=== PATIENT | male | born 1970 | race Caucasian/White ===

== ENCOUNTER → 2020-01-21 13:07 | Outpatient (REF) | payer BC, SELFPAY | LOC: ANHLAB 13:07 | PROVIDERS: PCP Nurse Practitioner Family; Visit Provider Nurse Practitioner | DX: M67.462 Ganglion, left knee (principal); M67.422 Ganglion, left elbow | CPT/HCPCS: 88304 ==

== ENCOUNTER 2020-08-01 14:54 | Outpatient (CLI) | payer BC, SELFPAY ==
--- NOTE | 2020-08-06 14:20 | WPDHOLTEREM ---
Holter/Event Monitor Holter/Event Monitor Date of procedure: 08/01/20 Procedure Type: 48 hour holter monitor Indications: Palpitations Conclusion: 1. 48 hour holter monitor on 08/01/20. 2. Underlying rhythm is sinus rhythm. HR range 43-133 bpm; average HR 74 bpm. 3. There are 14 premature supraventricular complexes. No supraventricular tachycardia. 4. There are 58 premature ventricular complexes. No ventricular tachycardia. 5. No sinoatrial or atrioventricular blocks. No significant pauses greater than 2 seconds. 6. No symptoms available for correlation.
== END 2020-08-01 14:55 | disposition home or self-care (01) ==
PROVIDERS: PCP Nurse Practitioner Adult Health; Visit Provider Nurse Practitioner Adult Health
DX: R00.2 Palpitations (principal)
CPT/HCPCS: 93225; 93226

== ENCOUNTER 2023-03-02 09:48 | Emergency (ER) | payer BC, SELFPAY ==
--- NOTE | ~2023-03-02 | CT_ITS ---
EXAMINATION: CT abdomen pelvis wo con DATE: 03/02/2023 11:02 INDICATION: Left flank pain TECHNIQUE: Computed tomography (CT) of the abdomen and pelvis was performed without intravenous contr ast. Automated exposure control and iterative reconstruction technique were employed. The dose-length product was 420.38 mGy-cm. COMPARISON: None FINDINGS: Mild dependent atelectasis in the right lower lobe. Heart size is normal. No pericardial or pleural e ffusion. Large calcified gallstones in the incompletely distended gallbladder. No pericholecystic inf lammatory change to suggest acute cholecystitis. The common bile duct is dilated to 11 mm with a few gallstones within the mid to distal duct. Mild central intrahepatic biliary ductal dilation. There ar e few small splenic calcific location consistent with old granulomatous disease. 8 mm cyst at the per ipheral upper pole of the left kidney. There are 3 stones in the lower pole of the left kidney the la rgest measuring 4 mm. Pancreas and bilateral adrenal glands are normal. 3 mm stone at the left ureter ovesicular junction with mild left hydroureteronephrosis. No right-sided urolithiasis or hydronephros is. No bowel obstruction. Normal retrocecal appendix. Penile prosthesis with reservoir in the anteroi nferior left hemipelvis. No free intraperitoneal gas or fluid. No pathologically enlarged abdominal o r pelvic lymphadenopathy. 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 The second this includes an old healed fracture milly ne extending into the left iliac wing. There is some heterotopic ossification the soft tissues bark scaler ior to the pubic bodies. L5 is sacralized on the left. IMPRESSION: 1. Left nephrolithiasis with obstructing 3 mm stone at the left ureterovesicular junction resulting i n mild left hydroureteronephrosis. 2. Cholelithiasis and choledocholithiasis with dilation the common bile duct to 11 mm and mild centra l intrahepatic biliary ductal dilation. Correlate with liver function tests. Reviewed, dictated and finalized at location A. FARM WORKER IMPRESSION: 1. Left nephrolithiasis with obstructing 3 mm stone at the left ureterovesicula r junction resulting in mild left hydroureteronephrosis. 2. Cholelithiasis and choledocholithiasis with dilation the common bile duct to 11 mm and mild central intrahepatic biliary ductal dilation. Correlate with li theodore function tests.
[2023-03-02 09:48] VITALS: RESP 14
[2023-03-02 09:51] VITALS: BP 135/80; PULSE 80; RESP 20; TEMP 36.4; O2SAT 100
[2023-03-02 10:20] LABS: Appearance Urine Cloudy (Clear); Bacteria Urine None Seen /hpf; Bilirubin Urine Negative (Negative); Blood Urine Negative (Negative); Color Urine Yellow (Yellow); Glucose Urine UA Negative (Negative); Ketones Urine Negative (Negative); Leukocyte Esterase Ur Trace LEU/UL (Negative); Nitrate Urine Negative (Negative); Non Pathogenic Casts 0-2; Protein Urine Negative (Negative); RBC Urine 0-2 /hpf (0-2); Specific Grav Ur 1.019 (1.001-1.035); Squamous Epithelial Cell Urine None seen /hpf (Few); Urobilinogen Urine 0.2 mg/dL (<2.0); WBC Urine 0-5 /hpf
[2023-03-02 10:25] LABS: Basophils Absolute Auto 0.1 K/mm3 (0.0-0.1); Basophils Percent Auto 0.7 % (0.2-1.2); Eosinophils Percent Auto 0.2 % (0-4.4); Hemoglobin 15.1 g/dL (14.0-18.0); Immature Granulocyte Absolute 0.06 K/mm3 (0.00-0.031); Immature Granulocyte Percent A 0.5 % (0-0.5); Lymphocytes Absolute Auto 0.93 K/mm3 (0.9-3.2); Lymphocytes Percent Auto 8.5 % (18.3-44.2); Mean Corpuscular HGB Conc 33.6 g/dl (32-36); Mean Corpuscular Hemoglobin 30.3 pg (26-34); Mean Corpuscular Volume 90.2 fl (80-100); Mean Platelet Volume 10.1 fl (7.4-10.4); Monocytes Absolute Auto 0.7 K/mm3 (0.1-0.6); Neutrophils Absolute Auto 9.2 K/mm3 (1.3-6.7); Neutrophils Percent Auto 84.1 % (45.5-73.1); Platelet Count Result 327 k/mm3 (150-375); Red Blood Count 4.99 M/mm3 (4.6-6.20); Red Cell Distribution Width 13.2 % (11.5-14.5)
[2023-03-02 10:33] LABS: Add Urine Microscopic? YES
--- NOTE | 2023-03-02 10:36 | PC.NURSE ---
Medic student attempted to start an IV on the pt when the pt states, I went to the bathroom and I feel better now, so the IV is useless.
[2023-03-02 10:37] LABS: Alanine Aminotransferase 22 U/L (6-50); Albumin Level 4.6 g/dL (3.5-5.1); Alkaline Phosphatase 48 U/L (38-126); Anion Gap 14 mmol/L (8-16); Aspartate Amino Transferase 24 U/L (17-59); Blood Urea Nitrogen 15 mg/dL (9-20); Calcium 9.5 mg/dL (8.4-10.2); Carbon Dioxide 22 mmol/L (22-30); Chloride 101 mmol/L (98-107); Estimated CRCL calculation 96 ml/min; Estimated Glomerular Filt Rate > 60; Glucose 160 mg/dL (65-110); Lipase 409 U/L (23-300); Potassium 3.6 mmol/L (3.4-5.0); Sodium 137 mmol/L (137-145)
--- NOTE | 2023-03-02 10:43 | ED.ABDPAIN ---
HPI - Abdominal Pain General Chief Complaint: Abdominal Pain Stated Complaint: abd pain Time Seen by Provider: 03/02/23 10:12 History of Present Illness HPI narrative: Patient is a 52-year-old male who presents the ER with left-sided abdominal pain and flank pain. Ongoing over last few days. Intermittent in nature. No aggravating or alleviating factors. Had severe pressure in his lower abdomen and felt like he needed to have a bowel movement but was unable to so he came in. Patient has history of urethral stricture due to a trauma years ago. He says he has been having some tingling around his penis is concerned he could have an infection. He has taken some oral ciprofloxacin provided to him by his significant other. Related Data Home Medications Medication Instructions Recorded Confirmed simvastatin 10 mg tablet 10 mg PO DAILY 12/03/19 Allergies Allergy/AdvReac Type Severity Reaction Status Date / Time No Known Allergies Allergy Verified 03/02/23 09:53 Review of Systems Review of Systems: All systems reviewed & are unremarkable except as noted in HPI and below Constitutional: Constitutional: Denies chills, Denies fatigue and Denies fever(s) Cardiovascular: Cardiovascular: Reports no additional cardiovascular complaints Respiratory: Respiratory: Reports no additional respiratory complaints Gastrointestinal: Gastrointestinal: Reports no additional gastrointestinal complaints Genitourinary: Genitourinary: Denies hematuria, Denies oliguria, Denies dysuria, Denies testicular pain and Reports urinary frequency PMFSH Surgical History Surgical History History of repair of ACL 2018 History of surgery uretha surgery Social History Social History (System 05/04/22 @ 15:20 by Saad Min) Smoking status: Never smoker Alcohol intake: current Alcohol use details: 2/week Substance use: never Substance use type: does not use Exam Narrative: GENERAL: Well-appearing, well-nourished, and in no acute distress. HEAD: Normocephalic, atraumatic. ENT: Mucous membranes moist. NECK: Supple. CHEST: Clear to auscultation. No respiratory distress. HEART: Regular rate and rhythm. Normal peripheral pulses. ABDOMEN: Soft, nontender, nondistended, No CVA tenderness. EXTREMITIES: Normal range of motion. No edema. SKIN: Warm, dry, no rash. NEURO: Alert and oriented x3. PSYCH: Normal mood and affect. Course Course Emergency Course: Patient with a kidney stone CT. Discussed case with Dr. Whatley at [facility] who is on-call for patient's typical urologist. She feels patient is going to be able passed 3 mm stone as he has had a procedure to help with his urethral stricture. She would like him to be given a copy of the images so that he can follow-up in their clinic. Patient will be discharged with pain control as well as Flomax as well as a copy of the images. Vital Signs Vital signs: Vital Signs Respiratory Rate 14 03/02/23 09:48 Temperature 97.5 F L 03/02/23 09:51 Pulse Rate 80 03/02/23 09:51 Respiratory Rate 20 03/02/23 09:51 Blood Pressure 135/80 03/02/23 09:51 Pulse Oximetry 100 03/02/23 09:51 MDM - Abdominal Pain Lab Data 03/02/23 10:02 03/02/23 10:02 Labs: Lab Results 03/02/23 Range/Units 10:02 WBC 11.0 H (4.5-10.0) K/mm3 RBC 4.99 (4.6-6.20) M/mm3 Hgb 15.1 (14.0-18.0) g/dL Hct 45.0 (42.0-52.0) % MCV 90.2 (80-100) fl MCH 30.3 (26-34) pg MCHC 33.6 (32-36) g/dl RDW 13.2 (11.5-14.5) % Plt Count 327 (150-375) k/mm3 MPV 10.1 (7.4-10.4) fl Immature Gran % (Auto) 0.5 (0-0.5) % Neut % (Auto) 84.1 H (45.5-73.1) % Lymph % (Auto) 8.5 L (18.3-44.2) % [place] % (Auto) 6.0 (2.6-8.5) % Eos % (Auto) 0.2 (0-4.4) % Baso % (Auto) 0.7 (0.2-1.2) % Lymph # (Auto) 0.93 (0.9-3.2) K/mm3 [place] # (Auto) 0.7 H (0.1-0
== END 2023-03-02 13:29 | disposition home or self-care (01) ==
PROVIDERS: Emergency Provider Emergency Medicine
DX: N13.2 Hydronephrosis with renal and ureteral calculous obstruction (principal); K80.20 Calculus of gallbladder without cholecystitis without obstruction
CPT/HCPCS: 36415; 74176; 80053; 81001; 83690; 85025; 99284

== ENCOUNTER → 2023-03-21 08:27 | Outpatient (CLI) | payer BC, SELFPAY ==
--- NOTE | ~2023-03-21 | MR_ITS ---
EXAMINATION: MR MRCP wo/w con/w 3D wo ind DATE: 03/21/2023 10:00 INDICATION: Cholelithiasis and choledocholithiasis. TECHNIQUE: Magnetic resonance imaging (MRI) of the abdomen was performed without and with 20 mL Multi paul intravenous contrast. Sequences included coronal T2-weighted SS-FSE, coronal T2-weighted FS SS- FSE, coronal T2-weighted FS FIESTA, axial T2-weighted FS FIESTA, axial T2-weighted FIESTA, sagittal T 2-weighted SS-FSE, axial T1-weighted dual-echo FSPGR, axial T2-weighted SS-FSE, axial T1-weighted LAV A, axial T2-weighted STIR FSE. Thick-slab T2-weighted FRFSE-XL images were obtained for magnetic reso nance cholangiopancreatography (MRCP). Rotating maximum intensity projection 3-D reconstructions of t he volumetric data were created by the technologist. Postcontrast sequences included a time course of axial T1-weighted LAVA. COMPARISON: None. FINDINGS: ABDOMEN MRI: Heart size is normal. No pericardial or pleural effusion. There are couple large gallstones in the no ndilated gallbladder with no wall thickening or pericholecystic inflammatory stranding to suggest acu te cholecystitis. Liver, spleen, pancreas, bilateral adrenal glands and right kidney are normal. A fe w T2 hyperintense nonenhancing left renal cysts the largest measuring 1.1 cm. The prior mild left hyd roureteronephrosis has resolved. Visualized portions of bowels are unremarkable with no obstruction. Mild lumbar levocurvature with mild spondylosis. Small T1 hyperintense and fat saturating L2 hemangio ma. ABDOMEN MRCP: The common bile duct is dilated to 10 mm in maximal diameter with multiple low signal intensity galls tones within the mid to distal common bile duct. The largest stone measures up to 11 x 7 mm . There i s mild central intrahepatic biliary ductal dilation. Main pancreatic duct is normal. IMPRESSION: 1. Cholelithiasis and choledocholithiasis with no significant change in mild intra and extrahepatic b iliary ductal dilation. Reviewed, dictated and finalized at location A. ICULUM DEVELOPER IMPRESSION: 1. Cholelithiasis and choledocholithiasis with no significant change in mild in tra and extrahepatic biliary ductal dilation.
== END ==
PROVIDERS: PCP Surgery; Visit Provider Surgery
DX: K80.70 Calculus of gallbladder and bile duct without cholecystitis without obstruction (principal)
CPT/HCPCS: 74183; 76376; A9577

== ENCOUNTER 2023-04-07 09:07 | Outpatient (CLI) | payer BC, SELFPAY ==
[2023-04-07 09:32] LABS: Mean Corpuscular HGB Conc 34.1 g/dl (32-36); Mean Corpuscular Hemoglobin 30.8 pg (26-34); Mean Corpuscular Volume 90.3 fl (80-100); Mean Platelet Volume 10.4 fl (7.4-10.4); Platelet Count Result 239 k/mm3 (150-375); Red Blood Count 4.87 M/mm3 (4.6-6.20); Red Cell Distribution Width 13.1 % (11.5-14.5); White Blood Count 3.2 K/mm3 (4.5-10.0)
[2023-04-07 09:41] LABS: Alanine Aminotransferase 23 U/L (6-50); Albumin Level 4.3 g/dL (3.5-5.1); Alkaline Phosphatase 34 U/L (38-126); Amylase 141 U/L (30-110); Anion Gap 6 mmol/L (8-16); Aspartate Amino Transferase 22 U/L (17-59); Bilirubin,Total 1.5 mg/dL (0.2-1.3); Blood Urea Nitrogen 19 mg/dL (9-20); Calcium 9.4 mg/dL (8.4-10.2); Carbon Dioxide 28 mmol/L (22-30); Chloride 105 mmol/L (98-107); Estimated Glomerular Filt Rate > 60; Glucose 99 mg/dL (65-110); Lipase 383 U/L (23-300); Potassium 5.1 mmol/L (3.4-5.0); Sodium 139 mmol/L (137-145)
== END 2023-04-07 09:08 | disposition home or self-care (01) ==
LOC: ANHLAB 09:09
PROVIDERS: PCP Nurse Practitioner; Visit Provider Nurse Practitioner Family
DX: K80.70 Calculus of gallbladder and bile duct without cholecystitis without obstruction (principal)
CPT/HCPCS: 36415; 80053; 82150; 83690; 85027

== ENCOUNTER 2023-05-09 02:07 | Day surgery (SDC) | payer BC, SELFPAY ==
[2023-04-26 12:28] VITALS: BMI 25.1
--- NOTE | 2023-05-03 10:14 | PC.NURSE ---
Chart reviewed by Dr. Pratt and no further testing or clearance needed to proceed with procedure.
--- NOTE | 2023-05-06 09:56 | SUR.PREOP ---
Patient called regarding upcoming procedure. Reviewed preop instructions, appointment times, and procedure prep.
[2023-05-09] VITALS (8 sets, daily range): BP systolic 128–150; BP diastolic 81–92; PULSE 52–90; RESP 15–21; TEMP 36.3–36.5; O2SAT 100
--- NOTE | ~2023-05-09 | XR_ITS ---
EXAMINATION: XR ERCP DATE: 05/09/2023 12:50 INDICATION: Choledocholithiasis. TECHNIQUE: 3 spot fluoroscopic images of the right upper quadrant were obtained during endoscopic ret rograde cholangiopancreatography (ERCP). Fluoroscopy exposure time was 125 seconds. COMPARISON: CT abdomen and pelvis 03/02/2023, MRCP 03/21/23 FINDINGS: The endoscope is in the second portion the duodenum. The common duct is dilated. There are gallstones in the common duct. Images demonstrate balloon sweeping of the common duct. There are gall stones in the gallbladder. IMPRESSION: 1. Choledocholithiasis and dilated common duct status post balloon sweeping of the common duct. 2. Cholelithiasis. Please refer to the ERCP procedure note for additional details. Reviewed, dictated and finalized at location A. IMPRESSION: 1. Choledocholithiasis and dilated common duct status post balloon sweeping of the common duct. 2. Cholelithiasis. Please refer to the ERCP procedure note for additional detai ls.
[2023-05-09] MEDS: LACTATED RINGERS 1,000 ML 150 ML IV CONT (11:46)
--- NOTE | 2023-05-09 11:56 | WPDANESEPPF ---
Anes - Initial Pre Proc Eval Procedure: Operation Date: 05/09/23 13:30 Proposed Procedures p Endoscopic Retro Cholangiopancreatogram - Davey Pascal MD Date/Time: 05/09/23 11:56 Surgeon: Davey Pascal MD Pre Op Diagnosis: Calculus of gallbladder and bile duct Patient Data Age: 52 Gender: M Height: 1.78 m Weight: 84.1 kg Last Vital Signs Temp 97.7 F 05/09/23 11:41 Pulse 64 05/09/23 11:41 Resp 16 05/09/23 11:41 BP 141/81 H 05/09/23 11:41 Pulse Ox 100 05/09/23 11:41 O2 Del Method Room Air 05/09/23 11:41 Allergies Allergy/AdvReac Type Severity Reaction Status Date / Time No Known Allergies Allergy Verified 05/09/23 11:39 Home Medications Medication Instructions Recorded Confirmed Type simvastatin 10 mg tablet 10 mg PO DAILY 12/03/19 04/26/23 History hydrochlorothiazide 12.5 mg capsule 12.5 mg PO DAILY 03/04/23 04/26/23 History losartan 25 mg tablet 25 mg PO DAILY 03/04/23 04/26/23 History Patient hx anesthesia problems: none Family hx anesthesia problems: none Results Review: All pre-operative results and documents have been reviewed as part of the pre-operative evaluation. [facility] Past Medical History Medical History (Updated 04/07/23 @ 09:02 by RAMON Cortes) High cholesterol History of blood transfusion Hypertension Kidney stones Surgical History Surgical History History of repair of ACL 2018 History of surgery uretha surgery Family History Family History Other Heart disease Hypertension Social History Social History Smoking status: Never smoker Alcohol intake: current Alcohol use details: rarely Substance use: never Substance use type: does not use Living arrangements: with family Occupation/Education: occupation Additional occupation/education comments: [employer] Spiritual care concerns: No Anes - Eval Final PreProcedure Day of Procedure 05/09/23 11:56 Patient weight: normal Heart: regular rate and rhythm Lungs: clear to auscultation Airway: Mallampati scale class II Neurological: alert and oriented Last oral intake: >/= 8 hours ASA classification: III Emergent: no Anesthetic plan: proceed Anesthesia type and monitoring: general ETT and standard monitoring Results Review: All pre-operative results and documents have been reviewed as part of the pre-operative evaluation. Informed Consent: The patient's anesthetic plan and its attendant risks and benefits were discussed with the patient/family/POA. Questions were solicited and answers provided to the satisfaction of the patient/family/POA.
--- NOTE | 2023-05-09 11:59 | PM.HPGS ---
History of Present Illness History of Present Illness Consent: Risks, benefits, and alternatives have been discussed and questions answered. Patient agrees to proceed with procedure. Chief complaint: Calculus of gallbladder and bile duct Narrative: Evens Angeles is a 52 year old male here for ercp, he presented to [place] ER on 03/02/23 for kidney stones and gallstones was an incidental finding. He had a CT abdomen/pelvis that showed?1. Left nephrolithiasis with obstructing 3 mm stone at the left ureterovesicular junction resulting in mild left hydroureteronephrosis and 2. Cholelithiasis and choledocholithiasis with dilation the common bile duct to 11 mm and mild central intrahepatic biliary ductal dilation. lipase was mildly elevated at? 409 and LFTs WNLs.?This was confirmed by MRCP. Denies abdominal pain or nausea, he does have reflux symptoms. Review of Systems Review of Systems: All systems reviewed & are unremarkable except as noted in HPI and below PMFSH Past Medical History Medical History (Updated 04/07/23 @ 09:02 by RAMON Cortes) High cholesterol History of blood transfusion Hypertension Kidney stones Surgical History Surgical History History of repair of ACL 2018 History of surgery uretha surgery Family History Family History Other Heart disease Hypertension Social History Social History Smoking status: Never smoker Alcohol intake: current Alcohol use details: rarely Substance use: never Substance use type: does not use Living arrangements: with family Occupation/Education: occupation Additional occupation/education comments: [employer] Spiritual care concerns: No Meds Home Medications and Allergies Home Medications Medication Instructions Recorded Confirmed Type simvastatin 10 mg tablet 10 mg PO DAILY 12/03/19 04/26/23 History hydrochlorothiazide 12.5 mg capsule 12.5 mg PO DAILY 03/04/23 04/26/23 History losartan 25 mg tablet 25 mg PO DAILY 03/04/23 04/26/23 History Allergies Allergy/AdvReac Type Severity Reaction Status Date / Time No Known Allergies Allergy Verified 05/09/23 11:39 Vital Signs Vital Signs - 24 hr 05/09/23 11:41 Temperature 97.7 F Pulse Rate 64 Respiratory Rate 16 Blood Pressure 141/81 H Pulse Oximetry 100 Oxygen Delivery Room Air Exam Const: General: comfortable and no acute distress HENMT: Face/Nose/Sinus: Normal nares present Eyes: General: appearance normal, both eyes and all related structures Neck: Neck: no JVD Resp: Auscultation: clear to auscultation bilaterally Cardio: Rate: regular rate Rhythm: regular rhythm GI: Inspection: non-distended GI Palp: Yes Soft to palpation Skin: General skin exam: normal color Neuro: General: gait normal Speech: normal speech Extrem: General: normal to inspection Psych: Mental Status: mental status grossly normal Assessment and Plan Assessment and plan (1) Cholelithiasis with choledocholithiasis: Code(s): K80.70 - Calculus of gallbladder and bile duct without cholecystitis without obstruction Status: Acute Assessment and Plan: ercp to remove bile duct stone, he is mostly asymptomatic but in the past had mild elevated lipase then will follow-up again with Dr Sherman
[2023-05-09] MEDS: INDOMETHACIN 50 MG SUPP.RECT RECTAL (12:22)
--- NOTE | 2023-05-09 14:02 | SUR.PHASEII ---
As I was taking pt out by wheelchair he complained of soreness in his Lt calf , I assessed his calf no warmth or redness, I informed him to see his if any of those symptoms arise.
== END 2023-05-09 13:56 | disposition home or self-care (01) ==
PROVIDERS: PCP Nurse Practitioner; Visit Provider Internal Medicine Gastroenterology
PROC: (CPT 43260; principal; 2023-05-09 13:30)
DX: K80.70 Calculus of gallbladder and bile duct without cholecystitis without obstruction (principal); I10 Essential (primary) hypertension; K83.8 Other specified diseases of biliary tract; E78.00 Pure hypercholesterolemia, unspecified; Z98.890 Other specified postprocedural states; Z82.49 Family history of ischemic heart disease and other diseases of the circulatory system
CPT/HCPCS: 43262; 43264; 74329; A9270; J0330; J2704; J7120; Q9966

== ENCOUNTER 2023-06-28 09:31 | Outpatient (CLI) | payer BC, SELFPAY ==
[2023-06-28 10:11] LABS: Alanine Aminotransferase 17 U/L (6-50); Albumin Level 4.4 g/dL (3.5-5.1); Alkaline Phosphatase 41 U/L (38-126); Amylase 93 U/L (30-110); Aspartate Amino Transferase 19 U/L (17-59); Bilirubin,Total 0.9 mg/dL (0.2-1.3); Lipase 54 U/L (23-300)
[2023-06-28 10:12] LABS: Anion Gap 4 mmol/L (4-12); Blood Urea Nitrogen 15 mg/dL (9-20); Calcium 9.3 mg/dL (8.4-10.2); Carbon Dioxide 28 mmol/L (22-30); Chloride 104 mmol/L (98-107); Estimated Glomerular Filt Rate > 60; Glucose 97 mg/dL (65-110); Potassium 4.2 mmol/L (3.4-5.0); Sodium 136 mmol/L (137-145)
== END 2023-06-28 09:32 | disposition home or self-care (01) ==
LOC: ANHSURGERY 09:33
PROVIDERS: Anesthesiology; PCP Nurse Practitioner; Visit Provider Surgery
DX: K80.70 Calculus of gallbladder and bile duct without cholecystitis without obstruction (principal); Z79.899 Other long term (current) drug therapy; Z01.818 Encounter for other preprocedural examination
CPT/HCPCS: 36415; 80048; 80076; 82150; 83690

== ENCOUNTER 2023-07-01 02:46 | Day surgery (SDC) | payer BC, SELFPAY ==
[2023-06-22 13:53] VITALS: BMI 25.1
--- NOTE | 2023-06-22 14:00 | PC.NURSE ---
Report to the Outpatient Waiting Room, entrance under the green pavilion located off [facility], at time 12:00 on date 07/01/23. Planned Procedure Time: 2:00. Time changes happen often and if your time is changed the preop area will call you the afternoon before. - You and your visitor will be asked to self-screen and do not enter if you have any COVID symptoms. - A mask is optional within the hospital at this time. Patients may have clear liquids (water, carbonated beverages, clear teas, apple juice) until 3 hours prior to surgery with a maximum of 20 ounces. - No food from midnight until time of surgery Take the following medications with a SIP of water the morning of surgery: NONE DO NOT STOP ANY OF YOUR OTHER PRESCRIPTION MEDICATIONS PRIOR TO SURGERY ?EXCEPT THE FOLLOWING Medications to discontinue per physician: N/A Date to take last dose: N/A Please no make-up, nail occitan, hairspray, perfume, deodorant, or body powder the day of surgery. No jewelry (including any body piercings) or valuables the day of surgery, leave them at home. Please take a shower or bath the night before, or the morning of, surgery with an antibacterial soap. Wear comfortable, loose fitting clothing. - Jewelry must be removed prior to entering the operating room. Rings and piercings that are not removed may be cut off. - The hospital will not accept responsibility for valuables. - Please leave all valuables, including medications, at home the day of surgery. If you are going home after surgery, a licensed dumpster driver must drive you home. - NO public transportation without another adult if you receive anesthesia. - We recommend that an adult stay with you for 24 hours following discharge. - We also recommend that you do not drive, make important decision, drink alcoholic beverages, or take any drugs that were not prescribed by your health care provider for at least 24 hours after your discharge time. Follow any additional instructions given to you from your surgeon. If you or anyone in your household have experienced Covid symptoms in the past week, please notify your surgeon or the nurse liaison at the phone number below for possible testing. Telephone instructions given to RHINA WONG and asked if any additional questions and then verbalized understanding. Patient advised to call surgeon office or pre surgery nurse liaison [phone] if any additional questions.
[2023-07-01] VITALS (8 sets, daily range): BP systolic 122–139; BP diastolic 72–87; PULSE 52–89; RESP 12–16; TEMP 36.3–37; O2SAT 99–100; BMI 25.4
--- NOTE | ~2023-07-01 | XR_ITS ---
EXAMINATION: XR cholangiogram surg 1st inj DATE: 07/01/2023 15:12 INDICATION: Cholelithiasis. TECHNIQUE: 76 fluoroscopic images of the right upper quadrant were obtained during intraoperative cho langiography performed by the surgeon. I was not present in the operating room. Fluoroscopy exposure time was 14 seconds. COMPARISON: CT abdomen pelvis 03/02/2023, MRCP 03/21/2023 FINDINGS: There is a catheter in the cystic duct. The common duct is mildly dilated. Contrast passes into the duodenum. IMPRESSION: 1. No choledocholithiasis. Reviewed, dictated and finalized at location E. IMPRESSION: 1. No choledocholithiasis.
--- NOTE | 2023-07-01 13:09 | P.PNAN_ITS ---
Anes - Initial Pre Proc Eval Procedure: Operation Date: 07/01/23 14:00 Proposed Procedures p Laparoscopic Cholecystectomy with Intraoperative Cholangiogram - Jeromy Goncalves DO Date/Time: 07/01/23 13:09 Surgeon: Jeromy Goncalves DO Pre Op Diagnosis: Cholelithiasis Choledocholithisis Patient Data Age: 52 Gender: M Height: 1.78 m Weight: 79.4 kg Allergies Allergy/AdvReac Type Severity Reaction Status Date / Time No Known Allergies Allergy Verified 06/22/23 13:53 Home Medications Medication Instructions Recorded Confirmed Type simvastatin 10 mg tablet 10 mg PO DAILY 12/03/19 06/22/23 History hydrochlorothiazide 12.5 mg capsule 12.5 mg PO DAILY 03/04/23 06/22/23 History losartan 25 mg tablet 25 mg PO DAILY 03/04/23 06/22/23 History Patient hx anesthesia problems: none Family hx anesthesia problems: none Results Review: All pre-operative results and documents have been reviewed as part of the pre- operative evaluation. [facility] Past Medical History Medical History (Updated 07/01/23 @ 13:09 by Cuong Parks MD) High cholesterol History of blood transfusion Hypertension Kidney stones ALIYA (obstructive sleep apnea) Surgical History Surgical History History of ERCP 05/09/23 History of repair of ACL 2018 History of surgery uretha surgery Family History Family History Other Heart disease Hypertension Social History Social History Smoking status: Never smoker Alcohol intake: current Alcohol use details: 2/MONTH Substance use: never Substance use type: does not use Living arrangements: with family Occupation/Education: occupation Additional occupation/education comments: [employer] Spiritual care concerns: No Anes - Eval Final PreProcedure Day of Procedure 07/01/23 13:09 Patient weight: normal Heart: regular rate and rhythm Lungs: clear to auscultation Airway: Mallampati scale class II Neurological: alert and oriented Last oral intake: >/= 8 hours ASA classification: III Emergent: no Anesthetic plan: proceed Anesthesia type and monitoring: general ETT and standard monitoring Results Review: All pre-operative results and documents have been reviewed as part of the pre- operative evaluation. Informed Consent: The patient's anesthetic plan and its attendant risks and benefits were discussed with the patient/family/POA. Questions were solicited and answers provided to the satisfaction of the patient/family/POA.
--- NOTE | 2023-07-01 13:17 | WPDHPUPDATE1 ---
History and Physical Update Update Date/Time: 07/01/23 13:17 History and Physical has been reviewed, including an updated exam of the patient. There are NO changes in the patient's condition. Risks, benefits, and alternatives have been discussed and questions answered. Patient agrees to proceed with procedure.
--- NOTE | 2023-07-01 13:17 | PM.IMHP ---
H&P: HPI History of Present Illness Date/Time: 07/01/23 13:17 Chief Complaint: Choledocholithiasis, cholelithiasis Narrative: Champ presents for laparoscopic cholecystectomy with intraoperative cholangiogram. He denies any medical changes since last seen in the office. Review of Systems Review of Systems: All systems reviewed & are unremarkable except as noted in HPI and below Constitutional: Constitutional: Denies chills, Denies fever(s), Denies headache(s) and Denies weight loss Eyes: Eyes: Denies change in vision ENT: Denies dizziness, Denies headache(s), Denies neck mass and Denies throat swelling Cardiovascular: Cardiovascular: Denies chest pain, Denies lightheadedness and Denies dyspnea Respiratory: Respiratory: Denies cough, Denies dyspnea and Denies wheezing Gastrointestinal: Gastrointestinal: Denies abdominal pain, Denies change in bowel habits, Denies nausea and Denies vomiting Genitourinary: Genitourinary: Denies hematuria and Denies dysuria Musculoskeletal: Musculoskeletal: Reports as per HPI Integumentary/Breasts: Skin/Breast: Reports as per HPI Neurologic: Denies dizziness and Denies headache(s) Allergic/Immunologic: Allergic/Immunologic: Denies throat swelling and Denies wheezing [facility] Past Medical History Medical History (Updated 07/01/23 @ 13:09 by Cuong Parks MD) High cholesterol History of blood transfusion Hypertension Kidney stones ALIYA (obstructive sleep apnea) Surgical History Surgical History History of ERCP 05/09/23 History of repair of ACL 2018 History of surgery uretha surgery Family History Family History Other Heart disease Hypertension Social History Social History Smoking status: Never smoker Alcohol intake: current Alcohol use details: 2/MONTH Substance use: never Substance use type: does not use Living arrangements: with family Occupation/Education: occupation Additional occupation/education comments: [employer] Spiritual care concerns: No Meds Home Medications and Allergies Home Medications Medication Instructions Recorded Confirmed Type simvastatin 10 mg tablet 10 mg PO DAILY 12/03/19 06/22/23 History hydrochlorothiazide 12.5 mg capsule 12.5 mg PO DAILY 03/04/23 06/22/23 History losartan 25 mg tablet 25 mg PO DAILY 03/04/23 06/22/23 History Allergies Allergy/AdvReac Type Severity Reaction Status Date / Time No Known Allergies Allergy Verified 06/22/23 13:53 Exam Const: General: no acute distress and alert Orientation/consciousness: patient oriented x3 HENMT: Head: normocephalic and atraumatic Ears: hearing grossly normal bilaterally Face/Nose/Sinus: Normal nares present Mouth: Yes Normal oral and palatal mucosa present Eyes: Periorbital: periorbital findings normal Sclera: sclerae normal EOM: EOMs intact bilaterally Neck: Neck: normal visual inspection, no lymphadenopathy and trachea midline Chest: Chest palpation & inspection: normal inspection of the chest Resp: Effort & Inspection: normal respiratory effort Auscultation: clear to auscultation bilaterally Cardio: Jugular venous distension: no JVD Rate: regular rate Rhythm: regular rhythm Heart sounds: S1 normal heart sound present and S2 normal heart sound present Peripheral pulses: Peripheral pulses 2+ throughout GI: Inspection: normal to inspection GI Palp: Yes Soft to palpation, No Tenderness to palpation present (GI), No Guarding due to palpation present (GI) and No Rebound tenderness present Percussion: Yes normal to percussion Auscultation: normal bowel sounds : General: Yes no CVA tenderness Back/Spine/Pelvis: Back: no CVA tenderness Neuro: General: patient oriented x3, no focal motor deficits and CN's II-XI intact bilaterally Cognition (Neuro): normal cognition
[2023-07-01] MEDS: LACTATED RINGERS 1,000 ML 30 ML IV CONT ×2 (13:35→15:52)
[2023-07-01] MEDS: KETOROLAC 15 MG/ML VIAL (*BKC) IV PUSH (13:37)
[2023-07-01] MEDS: ACETAMINOPHEN 500 MG TABLET 1000 MG PO (13:37)
[2023-07-01] MEDS: ceFAZolin 2 GM/D5W 50 ML 2 GM/50 ML BAG IVPB (14:12)
[2023-07-01] MEDS: BUPIVACAINE/EPINEPHRINE 0.5% 50 ML VIAL 30 ML INFILTRATE (14:13)
--- NOTE | 2023-07-01 15:59 | W.PM.PROC2 ---
Procedure Note - Detailed Date of Procedure 07/01/23 Pre-op Diagnosis Cholelithiasis, Choledocholithiasis Post-op Diagnosis Same Procedure Performed 1. Laparoscopic cholecystectomy with intraoperative cholangiogram 2. Massive adhesiolysis Surgeon Jeromy Goncalves, Anesthesia General and Local (0.5% bupivacaine with epinephrine) Indications This is a 52-year-old man who presented with a recent finding of choledocholithiasis and cholelithiasis. He was not having many symptoms of this, but he did have elevated bilirubin levels. He underwent ERCP with stone extraction. He followed up with GI laparoscopic cholecystectomy was recommended. He then followed up with me and he continues to not have any abdominal symptoms suggestive of symptomatic cholelithiasis or cholecystitis. We discussed the risks of recurrent choledocholithiasis which could lead to future problems. Decision was made to proceed with laparoscopic cholecystectomy with intraoperative cholangiogram, possible open. Findings Laparoscopic cholecystectomy with cholangiogram was performed. The patient had extensive adhesions from his prior exploratory laparotomy procedure. I entered the abdomen in the right upper quadrant but still encountered significant adhesions. I was able to find a small window where I could place a 2nd port free from adhesions. I then proceeded with adhesiolysis carefully with curved laparoscopic scissors. About 1 hour was spent performing adhesiolysis which is greater than 50% of the total operating time. There were several loops of small bowel omentum, transverse colon, and liver adherent to the abdominal wall. After taking down all of the adhesions in the periumbilical, epigastric, and right upper quadrant region I was then able to place my remaining ports performed the remainder of the procedure. The cystic duct appeared normal in size. Intraoperative cholangiogram was obtained and there did not appear to be any filling defects or obstruction within the common bile duct. There were several gallstones within the gallbladder and some chronic gallbladder wall thickening. The gallbladder was removed and sent to the lab for pathology. I did notice some bleeding along the omentum where the adhesiolysis had been performed. I sprayed Surgiflo along this area to help desk manager with hemostasis. Description of Procedure Procedure as well as risks, benefits, and alternatives were discussed with the patient. Written consent was obtained and placed in chart prior to procedure. Patient was brought back to surgical suite. He was placed supine operating table. Time-out was done to confirm patient and procedure. He was then intubated by the anesthesia department. His abdomen was prepped and aped in sterile fashion using chlorhexidine prep. 0.5% bupivacaine with epinephrine was infiltrated locally at each of the locations for port placement. A 5 mm incision was made in the right upper quadrant and a 5 mm Optiview trocar was advanced through the abdominal layers under direct visualization. Once inside the abdominal cavity, carbon dioxide insufflation was used to create a pneumoperitoneum. The camera was inserted in the abdomen was inspected. There appeared to be many adhesions all around where the port was placed. Was able to identify another area in the right lateral abdomen that appeared free of adhesions. A 5 mm incision was made in this location and a 5 mm trocar was inserted under direct visualization. I then began carefully taking down adhesions using laparoscopic curved scissors. I carefully took down all of the adhesions to about the midline periumbilical region. Some of these adhesions included loops of small bowel and care was taken to avoid injuring the small bowel while performing the adhesiolysis. I then was able to identify the abdominal wall in the left periumbilical region. A 5 mm incision was made at this location and a 5 mm trocar was inserted under direct visual
== END 2023-07-01 17:56 | disposition home or self-care (01) ==
PROVIDERS: PCP Nurse Practitioner; Visit Provider Surgery
PROC: 0FT44ZZ Resection of Gallbladder, Percutaneous Endoscopic Approach (ICD-10-PCS; CPT 47562; principal; 2023-07-01 14:00)
DX: K80.10 Calculus of gallbladder with chronic cholecystitis without obstruction (principal); K66.0 Peritoneal adhesions (postprocedural) (postinfection); E78.00 Pure hypercholesterolemia, unspecified; I10 Essential (primary) hypertension; G47.33 Obstructive sleep apnea (adult) (pediatric)
CPT/HCPCS: 47563; 36415; 74300; 80048; 80076; 82150; 83690; 88304; A9270; J0690; J1100; J1885; J2405; J2704; J3010; J7030; J7120; Q9966

== ENCOUNTER 2023-07-06 14:21 | Outpatient (CLI) | payer BC, SELFPAY ==
[2023-07-06 15:03] LABS: Hematocrit 27.2 % (42.0-52.0); Hemoglobin 8.8 g/dL (14.0-18.0); Mean Corpuscular HGB Conc 32.4 g/dl (32-36); Mean Corpuscular Hemoglobin 30.6 pg (26-34); Mean Corpuscular Volume 94.4 fl (80-100); Mean Platelet Volume 10.4 fl (7.4-10.4); Platelet Count Result 351 k/mm3 (150-375); Red Blood Count 2.88 M/mm3 (4.6-6.20); White Blood Count 6.8 K/mm3 (4.5-10.0)
== END 2023-07-06 14:22 | disposition home or self-care (01) ==
LOC: ANHLAB 14:22
PROVIDERS: PCP Nurse Practitioner; Visit Provider Surgery
DX: K80.70 Calculus of gallbladder and bile duct without cholecystitis without obstruction (principal)
CPT/HCPCS: 36415; 85027

== ENCOUNTER 2023-07-08 07:24 | Outpatient (CLI) | payer BC, SELFPAY ==
[2023-07-08 08:03] LABS: Hematocrit 29.2 % (42.0-52.0); Hemoglobin 9.6 g/dL (14.0-18.0)
== END 2023-07-08 07:25 | disposition home or self-care (01) ==
LOC: ANHLAB 07:25
PROVIDERS: PCP Nurse Practitioner; Visit Provider Surgery
DX: D62 Acute posthemorrhagic anemia (principal)
CPT/HCPCS: 36415; 85014; 85018

== ENCOUNTER 2023-07-15 10:42 | Outpatient (CLI) | payer BC, SELFPAY ==
[2023-07-15 11:27] LABS: Hematocrit 33.8 % (42.0-52.0); Hemoglobin 10.9 g/dL (14.0-18.0)
== END 2023-07-15 10:43 | disposition home or self-care (01) ==
LOC: ANHLAB 10:44
PROVIDERS: PCP Nurse Practitioner; Visit Provider Surgery
DX: D62 Acute posthemorrhagic anemia (principal)
CPT/HCPCS: 36415; 85014; 85018